=== PATIENT | female | born 1990 | race Caucasian/White ===

== ENCOUNTER 2019-03-11 07:05 | Emergency (ER) | payer MEDICAID ==
[~2019-03-11] VITALS: Ht 165.1 cm; Wt 53.5 kg
[2019-03-11 08:30] VITALS: BP 113/69
== END 2019-03-11 09:26 | disposition home or self-care (01) ==
LOC: ED 08:15
DX: S70.02XA Contusion of left hip, initial encounter (principal); S70.12XA Contusion of left thigh, initial encounter; W07.XXXA Fall from chair, initial encounter; Y93.89 Activity, other specified; Y92.009 Unspecified place in unspecified non-institutional (private) residence as the place of occurrence of the external cause; Y99.8 Other external cause status
CPT/HCPCS: 99284

== ENCOUNTER 2020-08-05 08:23 | Emergency (ER) | payer MEDICAID ==
[~2020-08-05] VITALS: Ht 160 cm; Wt 49.7 kg
[2020-08-05 08:55] LABS: BASOPHILS % (AUTO) 1 % (0-1); EOSINOPHILS % (AUTO) 1 % (1-7); LYMPHOCYTES % (AUTO) 34 % (22-44); MEAN CORPUSCULAR HEMOGLOBIN 29.8 pg (27.0-34.8); MEAN CORPUSCULAR HGB CONC 33.6 g/dL (32.4-35.8); MEAN PLATELET VOLUME 10.6 fL (7.4-10.4); MONOCYTES % (AUTO) 6 % (2-9); NEUTROPHILS % (AUTO) 59 % (42-75); PLATELET COUNT 234 x10^3/uL (130-400); RED BLOOD COUNT 5.39 x10^6/uL (3.82-5.3); RED CELL DISTRIBUTION WIDTH 13.3 % (9.6-15.2)
[2020-08-05 08:59] LABS: MD NO
[2020-08-05 09:07] LABS: ALBUMIN 4.3 g/dL (3.4-5.0); ANION GAP 5 mmol/L (5-15); CALCIUM 9.2 mg/dL (8.5-10.1); CHLORIDE 111 mmol/L (98-107)
--- NOTE | 2020-08-05 09:29 | NUR ---
PT BACK FROM US
[2020-08-05 09:51] LABS: MICROSCOPIC INDICATED
[2020-08-05 10:35] VITALS: BP 124/74
== END 2020-08-05 10:38 | disposition home or self-care (01) ==
LOC: ED 10:13
DX: O26.891 Other specified pregnancy related conditions, first trimester (principal); R10.2 Pelvic and perineal pain; Z3A.08 8 weeks gestation of pregnancy
CPT/HCPCS: 36415; 76801; 80048; 81001; 82040; 84702; 85025; 87086; 99284

== ENCOUNTER 2020-08-08 08:52 | Emergency (ER) | payer MEDICAID ==
[~2020-08-08] VITALS: Ht 160 cm; Wt 49.3 kg
[2020-08-08 08:53] VITALS: BP 116/80
--- NOTE | 2020-08-08 10:04 | NUR ---
PT UPRIGHT ON GURNEY AWAKE & CCOMFORTABLE, RESPONDS APPROP TO STAFF, NAD/DENIES PAIN, COMFORT MEASURES PROVIDED, CALL LIGHT WITHIN REACH.
--- NOTE | 2020-08-08 10:05 | NUR ---
PT TO US
--- NOTE | 2020-08-08 11:31 | NUR ---
Patient given discharge instructions and they have confirmed that they understand the instructions. Patient ambulatory with steady gait.
== END 2020-08-08 11:48 | disposition home or self-care (01) ==
LOC: ED 11:22
DX: Z32.01 Encounter for pregnancy test, result positive (principal); F17.200 Nicotine dependence, unspecified, uncomplicated
CPT/HCPCS: 36415; 76801; 84702; 99284

== ENCOUNTER 2020-08-26 09:54 | Emergency (ER) | payer MEDICAID ==
[~2020-08-26] VITALS: Ht 162.6 cm; Wt 48.4 kg
--- NOTE | 2020-08-26 10:19 | NUR ---
PT PLACED ON ALL ROOM MONITORING. EKG COMPLETED IN TRIAGE, NSR ON MONITOR PT STATES TOO DIZZY TO BE ABLE TO AMBULATE SAFELY. BS COMMODE PLACED IN ROOM, PT AWARE OF NEED FOR UA. PT STATES N/V, UNABLE TO KEEP FOOD OR WATER DOWN FOR TWO DAYS. CALL LIGHT WITHIN REACH, SPOUSE AT BS.
[2020-08-26] MEDS ORDERED: ONDANSETRON 2MG/ML, 2ML IVPush ONE (10:30)
[2020-08-26] MEDS ORDERED: FAMOTIDINE 20 MG/2 ML IVPush ONE (10:30)
[2020-08-26] MEDS ORDERED: SODIUM CHLORIDE FLUSH 10ML SYR IVF ONE (10:30)
[2020-08-26] MEDS ORDERED: SODIUM CHLORIDE 0.9% 1,000ML IVBOLUS ONE (10:30)
[2020-08-26] MEDS ORDERED: ONDANSETRON 2MG/ML, 2ML ONE ×2 (10:32→10:33)
[2020-08-26] MEDS ORDERED: FAMOTIDINE 20 MG/2 ML ONE (10:38)
--- NOTE | 2020-08-26 10:42 | NUR ---
IV PLACED, PT MEDICATED PER ERP ORDER FOR NAUSEA, DRY HEAVING. NS BOLUS INFUSING. URINE COLLECTED/SENT TO LAB.
[2020-08-26 10:47] LABS: BASOPHILS % (AUTO) 0 % (0-1); EOSINOPHILS % (AUTO) 1 % (1-7); LYMPHOCYTES % (AUTO) 16 % (22-44); MEAN CORPUSCULAR HEMOGLOBIN 29.5 pg (27.0-34.8); MEAN CORPUSCULAR HGB CONC 33.7 g/dL (32.4-35.8); MEAN PLATELET VOLUME 10.2 fL (7.4-10.4); MONOCYTES % (AUTO) 5 % (2-9); NEUTROPHILS % (AUTO) 79 % (42-75); PLATELET COUNT 209 x10^3/uL (130-400); RED BLOOD COUNT 5.21 x10^6/uL (3.82-5.3); RED CELL DISTRIBUTION WIDTH 13.3 % (9.6-15.2)
[2020-08-26 10:52] LABS: ANION GAP 8 mmol/L (5-15); CALCIUM 9.5 mg/dL (8.5-10.1); CHLORIDE 109 mmol/L (98-107); CREATININE 0.56 mg/dL (0.55-1.02)
[2020-08-26 11:17] LABS: MICROSCOPIC NOT IND
[2020-08-26 11:25] LABS: MD NO
--- NOTE | 2020-08-26 11:41 | NUR ---
PT STATING IV HURTING, 1ST LITER NS COMPLETED, DECLINES 2ND LITER NS OFFERED. PO CHALLENGE STARTED. CALL LIGHT WITHIN REACH.
[2020-08-26 12:37] VITALS: BP 128/61
--- NOTE | 2020-08-26 12:37 | NUR ---
NO VOMITING DURING ED STAY. PT STATES DECREASED DIZZINESS, ABLE TO KEEP WATER DOWN. PT DISCHARGED, AMBULATORY W/STEADY GAIT TO DC DESK.
== END 2020-08-26 12:39 | disposition home or self-care (01) ==
LOC: ED 10:11
DX: O21.0 Mild hyperemesis gravidarum (principal); R42 Dizziness and giddiness; Z3A.21 21 weeks gestation of pregnancy
CPT/HCPCS: 36415; 80048; 81003; 82040; 85025; 93005; 96361; 96374; 96375; 99284; J2405; J7030